=== PATIENT | male | born 1990 | race Hispanic/Latino ===

== ENCOUNTER 2018-09-03 10:04 | Emergency (ER) | payer OTHER ==
[2018-09-03 10:53] LABS: RAPID GROUP A STREP NEGATIVE (NEGATIVE)
== END 2018-09-03 11:38 | disposition home or self-care (01) ==
LOC: EDH 10:04
DX: J20.9 Acute bronchitis, unspecified (principal); R04.2 Hemoptysis
CPT/HCPCS: 71045; 87804; 87880